=== PATIENT | male | born 1950 | race Native Hawaiian/Other Pacific Islander ===

== ENCOUNTER 2017-06-21 06:48 | Day surgery (SDC) | payer OTHER ==
[2016-04-19 12:34] VITALS: BMI 26.6
[2017-06-21] MEDS ORDERED: Propofol 10 mg/ml Inj (20 ML) ONE (08:33)
--- NOTE | 2017-06-21 08:34 | CP.SDSHP ---
Same Day Surgery H & P - History Proposed Procedure: COLONSCOPY Pre-Op Diagnosis: SEE NOTES - Previous Medical/Surgical History Cardiac: Hypertension Endocrine/Metabolic: Diabetes, Other - Allergies Allergies: Allergies No Known Allergies Allergy (Verified 06/21/17 07:19) - Physical Exam General Appearance: N Vital Signs: Vital Signs 06/21/17 07:00 Temperature 97.6 F Pulse Rate 66 Respiratory 19 Rate Blood Pressure 126/71 O2 Sat by Pulse 99 Oximetry Mental Status: Alert & Oriented x3 Neuro: WNL Heart: Other Lungs: WNL GI: WNL - {Optional Preform as Required} Breast: WNL Abdomen: Other Rectal: Other Integument: WNL : WNL Ortho: WNL ENT: WNL - Impression Pt. Evaluated Today:Candidate for Anesthesia & Procedure: Yes - Date & Time Time: 08:34 Short Stay Discharge - Short Stay Discharge Admitting Diagnosis/Reason for Visit: BODY WEIGHT LOSS Disposition: HOME/ ROUTINE
[2017-06-21] MEDS ORDERED: Pantoprazole 40 mg EC Tab PO STA (08:48)
[2017-06-21] MEDS ORDERED: Belladonna-Phenobarbital PO STA (08:48)
[2017-06-21 09:24] VITALS: TEMP 97.3
[2017-06-21 09:29] VITALS: RESP 17
[2017-06-21 10:40] VITALS: BP 121/60; PULSE 66; O2SAT 99
== END 2017-06-21 10:10 | disposition home or self-care (01) ==
LOC: C.ENDO 06:48
PROVIDERS: ATTEND Specialist
DX: K58.9 Irritable bowel syndrome, unspecified (principal); K64.8 Other hemorrhoids; K64.4 Residual hemorrhoidal skin tags
CPT/HCPCS: 45380; 82948; 88305; J2704

== ENCOUNTER 2018-09-13 08:51 | Outpatient (CLI) | payer OTHER | END 2018-09-13 08:52 | disposition home or self-care (01) | LOC: C.LAB 08:51 | DX: E11.65 Type 2 diabetes mellitus with hyperglycemia (principal); E78.2 Mixed hyperlipidemia ==

== ENCOUNTER 2018-12-11 09:08 | Outpatient (CLI) | payer OTHER | END 2018-12-11 09:09 | disposition home or self-care (01) | LOC: C.LAB 09:08 ==